=== PATIENT | male | born 1970 | race African-American/Black ===

== ENCOUNTER 2017-04-11 11:52 | Inpatient (IN) | payer MEDICAID ==
[~2017-04-11] VITALS: Ht 175.3 cm; Wt 108.9 kg
[~2017-04-11 11:52] MED LIST: AMLO10TA4 PO; ASPI-1159 PO; ATOR10TA PO; BACL-141 PO; CLON0.2T PO; HYDR25TA PO; POTA10CA42 PO
[2017-04-11] MEDS ORDERED: SODIUM CHLORIDE 0.9% 1,000 ML IV ONE (12:24)
[2017-04-11] MEDS ORDERED: LEVETIRACETAM 1,000 MG in SODIUM CHLORIDE 0.9% 100 ML IV ONE (12:30)
[2017-04-11 13:03] LABS: BASOPHILS % 0.7 % (0.0-2.0); EOSINOPHILS % 5.6 % (0.0-5.0); HEMATOCRIT. 41.9 % (42.0-52.0); HEMOGLOBIN. 14.3 g/dL (14.0-18.0); LYMPHOCYTES % 14.8 % (20.0-50.0); MEAN CORPUSCULAR HEMOGLOBIN 29.4 pg (28.0-32.0); MEAN CORPUSCULAR VOLUME 86.3 fL (80.0-94.0); MEAN PLATELET VOLUME 9.5 fl (7.4-10.4); MONOCYTES % 6.2 % (2.0-8.0); NEUTROPHILS % 72.7 % (40.0-76.0); PLATELET 187 x1000/uL (130-400); RED BLOOD CELL COUNT 4.86 mill/uL (4.7-6.1); RED CELL DISTRIBUTION WIDTH 15.5 % (11.6-14.6)
[2017-04-11 13:23] LABS: CARBON DIOXIDE 25 mEq/L (21-32); CHLORIDE 105 mEq/L (98-107); ETHANOL BLOOD < 10 mg/dL
[2017-04-11 14:41] LABS: CLARITY URINE CLEAR (CLEAR); COLOR URINE YELLOW (YELLOW); GLUCOSE URINE 1+ (NEGATIVE); KETONES URINE NEGATIVE (NEGATIVE); LEUKOCYTE ESTERASE URINE NEGATIVE (NEGATIVE); NITRITE URINE NEGATIVE (NEGATIVE); OCCULT BLOOD URINE NEGATIVE (NEGATIVE); PROTEIN URINE 1+ (NEGATIVE); SPECIFIC GRAVITY URINE 1.011 (1.005-1.030); UROBILINOGEN URINE 0.2 E.U./dL (0.2-1.0)
[2017-04-11 14:52] LABS: *AMPHETAMINES SCREEN URINE NEGATIVE (NEGATIVE); *BARBITURATES SCREEN URINE NEGATIVE (NEGATIVE); *BENZODIAZEPINES SCREEN URINE PRESUMTIVE POSITIVE (NEGATIVE); *COCAINE SCREEN URINE NEGATIVE (NEGATIVE); CANNABINOID URINE SCREEN PRESUMTIVE POSITIVE (NEGATIVE); METHADONE URINE SCREEN NEGATIVE (NEGATIVE); OPIATES URINE SCREEN NEGATIVE (NEGATIVE); PHENCYCLIDINE URINE SCREEN NEGATIVE (NEGATIVE)
[2017-04-11 20:52] VITALS: BP 140/93
[2017-04-11 20:55] VITALS: BP 140/93
[2017-04-11] MEDS ORDERED: LOSA50TA3 PO (21:15)
[2017-04-11] MEDS ORDERED: METF500T4 PO (21:15)
[2017-04-11] MEDS ORDERED: ATOR20TA PO (21:15)
[2017-04-11] MEDS ORDERED: KEPP500 PO (21:15)
[2017-04-11] MEDS ORDERED: LORAZEPAM 2MG/ML CPJ IV PRN (23:45)
[2017-04-11] MEDS ORDERED: CLONIDINE 0.1MG TABLET PO PRN (23:45)
[2017-04-11] MEDS ORDERED: ACETAMINOPHEN 325MG TABLET PO PRN (23:45)
[2017-04-11] MEDS ORDERED: ONDANSETRON HCL 4MG/2ML VIAL IV PRN (23:45)
[2017-04-11] MEDS: SODIUM CHLORIDE 0.9% 1,000 ML IV SCH (23:53)
[2017-04-12] VITALS: BP 142/88
[2017-04-12 03:58] VITALS: BP 119/81
[2017-04-12 07:41] LABS: BASOPHILS % 0.7 % (0.0-2.0); MEAN CORPUSCULAR VOLUME 85.2 fL (80.0-94.0); MEAN PLATELET VOLUME 9.7 fl (7.4-10.4); NEUTROPHILS % 59.3 % (40.0-76.0); PLATELET 189 x1000/uL (130-400); RED BLOOD CELL COUNT 4.82 mill/uL (4.7-6.1); RED CELL DISTRIBUTION WIDTH 15.4 % (11.6-14.6)
[2017-04-12 08:00] VITALS: BP 127/94
[2017-04-12 08:11] LABS: CARBON DIOXIDE 28 mEq/L (21-32); CHLORIDE 108 mEq/L (98-107)
[2017-04-12] MEDS: METFORMIN HCL 500MG TABLET PO SCH ×2 (09:35→16:25)
[2017-04-12] MEDS: ASPIRIN 81MG EC TABLET PO SCH (09:35)
[2017-04-12] MEDS: LOSARTAN POTASSIUM 50 MG TABLET PO SCH ×2 (09:36→21:02)
[2017-04-12] MEDS: AMLODIPINE 10MG TABLET PO SCH (09:36)
[2017-04-12] MEDS: LEVETIRACETAM 500MG TABLET PO SCH ×2 (09:36→16:25)
[2017-04-12] MEDS ORDERED: DEXTROSE 50% WATER 50ML SYRINGE IV PRN (11:45)
[2017-04-12 12:00] VITALS: BP 126/78
[2017-04-12] MEDS: INSULIN LISPRO 100 UNITS/ML SUBCUT SCH ×3 (12:15→21:00)
[2017-04-12] MEDS: BLOOD SUGAR DIAGNOSTIC STRIP TEST SCH ×3 (12:39→21:10)
[2017-04-12 16:00] VITALS: BP 114/74
[2017-04-12] MEDS: SODIUM CHLORIDE 0.9% 1,000 ML IV SCH (16:25)
[2017-04-12 20:00] VITALS: BP 115/81
[2017-04-12] MEDS ORDERED: ATORVASTATIN CALCIUM 20MG TABLET PO SCH (21:00)
[2017-04-13] VITALS: BP 105/72
[2017-04-13] MEDS: SODIUM CHLORIDE 0.9% 1,000 ML IV SCH (02:13)
[2017-04-13] MEDS: INSULIN LISPRO 100 UNITS/ML SUBCUT SCH ×3 (07:02→17:15)
[2017-04-13] MEDS: BLOOD SUGAR DIAGNOSTIC STRIP TEST SCH ×3 (07:02→16:55)
[2017-04-13 07:30] LABS: BASOPHILS % 0.7 % (0.0-2.0); EOSINOPHILS % 5.5 % (0.0-5.0); HEMATOCRIT. 42.4 % (42.0-52.0); LYMPHOCYTES % 27.4 % (20.0-50.0); MEAN CORPUSCULAR VOLUME 84.7 fL (80.0-94.0); MEAN PLATELET VOLUME 9.4 fl (7.4-10.4); MONOCYTES % 7.2 % (2.0-8.0); NEUTROPHILS % 59.2 % (40.0-76.0); PLATELET 185 x1000/uL (130-400); RED BLOOD CELL COUNT 5.01 mill/uL (4.7-6.1)
[2017-04-13 07:35] LABS: CARBON DIOXIDE 26 mEq/L (21-32); CHLORIDE 107 mEq/L (98-107)
[2017-04-13] MEDS: LEVETIRACETAM 500MG TABLET PO SCH ×2 (08:44→17:07)
[2017-04-13] MEDS: METFORMIN HCL 500MG TABLET PO SCH ×2 (08:44→17:07)
[2017-04-13] MEDS: ASPIRIN 81MG EC TABLET PO SCH (08:44)
[2017-04-13] MEDS: AMLODIPINE 10MG TABLET PO SCH (08:45)
[2017-04-13] MEDS: LOSARTAN POTASSIUM 50 MG TABLET PO SCH (08:45)
[2017-04-13 15:17] VITALS: BP 117/79
== END 2017-04-13 17:55 | disposition home or self-care (01) | DRG 469 ==
LOC: ER 11:59 → EDBEDREQ 18:03 → ENRESERV 18:14 → 5WST 21:40
PROVIDERS: ADMIT Internal Medicine; ATTEND Internal Medicine
DX: N17.9 Acute kidney failure, unspecified (principal); I69.354 Hemiplegia and hemiparesis following cerebral infarction affecting left non-dominant side; I10 Essential (primary) hypertension; G40.901 Epilepsy, unspecified, not intractable, with status epilepticus; E11.9 Type 2 diabetes mellitus without complications; E78.00 Pure hypercholesterolemia, unspecified; N28.9 Disorder of kidney and ureter, unspecified; R26.9 Unspecified abnormalities of gait and mobility; F12.90 Cannabis use, unspecified, uncomplicated; F17.210 Nicotine dependence, cigarettes, uncomplicated; Z91.19 Patient's noncompliance with other medical treatment and regimen; Z79.899 Other long term (current) drug therapy
CPT/HCPCS: 36415; 70450; 70551; 80048; 80053; 80305; 80307; 81001; 82962; 85025; 96365; 99291; G0482; J1815; J1953; J7030; J7050

== ENCOUNTER 2019-02-26 06:03 | Emergency (ER) | payer SELFPAY ==
[~2019-02-26] VITALS: Ht 175.3 cm; Wt 115.4 kg
[~2019-02-26 06:03] MED LIST changes: -ASPI-1159 PO; +ASPI-1393 PO; -ATOR10TA PO; -BACL-141 PO; -CLON0.2T PO; -HYDR25TA PO; +LEVE750T4 PO; -POTA10CA42 PO
[2019-02-26 08:15] LABS: CLARITY URINE CLOUDY (CLEAR); COLOR URINE YELLOW (YELLOW); KETONES URINE NEGATIVE (NEGATIVE); LEUKOCYTE ESTERASE URINE 1+ (NEGATIVE); NITRITE URINE POSITIVE (NEGATIVE); OCCULT BLOOD URINE NEGATIVE (NEGATIVE); PH URINE 5.5 (4.5-8.0); PROTEIN URINE 1+ (NEGATIVE); SPECIFIC GRAVITY URINE 1.013 (1.005-1.030); UROBILINOGEN URINE 0.2 E.U./dL (0.2-1.0)
[2019-02-26 10:04] VITALS: BP 133/91
== END 2019-02-26 10:05 | disposition home or self-care (01) ==
LOC: ER 07:28
DX: R33.9 Retention of urine, unspecified (principal); N39.0 Urinary tract infection, site not specified; N40.0 Benign prostatic hyperplasia without lower urinary tract symptoms; I12.9 Hypertensive chronic kidney disease with stage 1 through stage 4 chronic kidney disease, or unspecified chronic kidney disease; E11.22 Type 2 diabetes mellitus with diabetic chronic kidney disease; N18.9 Chronic kidney disease, unspecified; R56.9 Unspecified convulsions; F17.210 Nicotine dependence, cigarettes, uncomplicated; Z79.82 Long term (current) use of aspirin; Z79.899 Other long term (current) drug therapy
CPT/HCPCS: 81003; 87077; 87186; 99283

== ENCOUNTER 2021-12-14 11:01 | Emergency (ER) | payer MEDICAID, OTHER ==
[~2021-12-14] VITALS: Ht 175.3 cm; Wt 89.0 kg
[~2021-12-14 11:01] MED LIST changes: -ASPI-1393 PO; +ASPI-1497 PO
[2021-12-14] MEDS ORDERED: LIDOCAINE 5% PATCH TOP SCH (11:23)
[2021-12-14] MEDS ORDERED: LIDO700A15 TP (11:32)
[2021-12-14] MEDS ORDERED: CYCL5TAB MT (11:32)
[2021-12-14 12:02] VITALS: BP 137/86
[2021-12-15] MEDS ORDERED: DIAZ2TAB MT (14:42)
== END 2021-12-14 12:22 | disposition home or self-care (01) ==
LOC: ER 11:23
DX: M62.830 Muscle spasm of back (principal); Z86.73 Personal history of transient ischemic attack (TIA), and cerebral infarction without residual deficits; R53.1 Weakness; E11.9 Type 2 diabetes mellitus without complications; I10 Essential (primary) hypertension; F12.10 Cannabis abuse, uncomplicated
CPT/HCPCS: 99283

== ENCOUNTER 2021-12-15 12:19 | Emergency (ER) | payer OTHER ==
[~2021-12-15] VITALS: Ht 180.3 cm; Wt 91.0 kg
[~2021-12-15 12:19] MED LIST changes: +CYCL5TAB MT; +LIDO700A15 TP
[2021-12-15 12:21] VITALS: BP 144/98
[2021-12-15] MEDS ORDERED: KETOROLAC 30MG/ML VIAL IM ONE (13:15)
[2021-12-15] MEDS ORDERED: DIAZEPAM 5 MG TABLET PO ONE (13:45)
[2021-12-15] MEDS ORDERED: DIAZ2TAB MT (14:42)
== END 2021-12-15 14:49 | disposition home or self-care (01) ==
LOC: ER 12:19
DX: S13.9XXA Sprain of joints and ligaments of unspecified parts of neck, initial encounter (principal); E11.9 Type 2 diabetes mellitus without complications; I10 Essential (primary) hypertension; G40.909 Epilepsy, unspecified, not intractable, without status epilepticus; F12.10 Cannabis abuse, uncomplicated; Z86.73 Personal history of transient ischemic attack (TIA), and cerebral infarction without residual deficits; Z79.82 Long term (current) use of aspirin; X50.0XXA Overexertion from strenuous movement or load, initial encounter; Y93.89 Activity, other specified; Y92.89 Other specified places as the place of occurrence of the external cause
CPT/HCPCS: 72040; 73030; 93005; 96372; 99284; J1885

== ENCOUNTER 2021-12-23 12:16 | Inpatient (IN) | payer OTHER ==
[~2021-12-23] VITALS: Ht 175.3 cm; Wt 87.5 kg
[~2021-12-23 12:16] MED LIST changes: -CYCL5TAB MT; +DIAZ2TAB MT
[2021-12-23] MEDS ORDERED: KETOROLAC 60MG/2ML VIAL IM ONE (13:15)
[2021-12-23] MEDS ORDERED: HYDROCODONE/ACETAMINOPHEN 5/325MG TABLET PO ONE (13:15)
[2021-12-23 16:24] LABS: BASOPHILS % 0.6 % (0.0-2.0); EOSINOPHILS % 4.3 % (0.0-5.0); HEMATOCRIT. 44.2 % (42.0-52.0); HEMOGLOBIN. 14.9 g/dL (14.0-18.0); LYMPHOCYTES % 25.2 % (20.0-50.0); MEAN CORPUSCULAR HEMOGLOBIN 29.7 pg (28.0-32.0); MEAN CORPUSCULAR VOLUME 88.3 fL (80.0-94.0); MONOCYTES % 6.3 % (2.0-8.0); NEUTROPHILS % 63.6 % (40.0-76.0); RED BLOOD CELL COUNT 5.01 mill/uL (4.7-6.1); RED CELL DISTRIBUTION WIDTH 14.8 % (11.6-14.6)
[2021-12-23 16:29] LABS: CHLORIDE 113 mEq/L (98-107)
[2021-12-23 16:32] LABS: PROTHROMBIN TIME 11.1 sec (9.6-11.0)
[2021-12-23] MEDS ORDERED: KETOROLAC 60MG/2ML VIAL IM NR (16:50)
[2021-12-23] MEDS ORDERED: HYDROCODONE/ACETAMINOPHEN 5/325MG TABLET PO NR (16:50)
[2021-12-23 17:11] LABS: PLATELET ESTIMATE NORMAL
[2021-12-23 17:12] LABS: MEAN PLATELET VOLUME 10.1 fl (7.4-10.4); PLATELET 171 x1000/uL (130-400)
[2021-12-23 22:00] VITALS: BP 133/86
[2021-12-23 22:30] VITALS: BP 153/104
[2021-12-23] MEDS ORDERED: MORPHINE SULFATE 2 MG/ML CPJ (NOT FOR IM USE) IV PRN (23:15)
[2021-12-23] MEDS ORDERED: CLONIDINE 0.1MG TABLET PO PRN (23:15)
[2021-12-23] MEDS ORDERED: ONDANSETRON HCL 4MG/2ML INJ IV PRN (23:15)
[2021-12-23] MEDS ORDERED: IPRATROPIUM/ALBUTEROL 0.5-3(2.5)MG/3ML NEB HHN PRN (23:15)
[2021-12-23] MEDS ORDERED: MAGNESIUM/ALUMINUM HYDROXIDE/SIMETHICONE 30ML UDC PO PRN (23:15)
[2021-12-23] MEDS ORDERED: DOCUSATE SODIUM 100MG CAPSULE PO PRN (23:15)
[2021-12-23] MEDS ORDERED: ACETAMINOPHEN 325MG TABLET PO PRN ×2 (23:15)
[2021-12-23] MEDS ORDERED: PANTOPRAZOLE 40MG DR TABLET PO NR (23:45)
[2021-12-23] MEDS: HYDROCODONE/ACETAMINOPHEN 5/325MG TABLET PO PRN (23:54)
[2021-12-23] MEDS: DEXAMETHASONE 4MG/ML 1ML VIAL IV SCH (23:54)
[2021-12-23] MEDS: SODIUM CHLORIDE 0.9% 1,000 ML IV SCH (23:55)
[2021-12-24] VITALS: BP 153/104
[2021-12-24 04:00] VITALS: BP 121/72
[2021-12-24] MEDS: HYDROCODONE/ACETAMINOPHEN 5/325MG TABLET PO PRN ×2 (06:06→16:10)
[2021-12-24] MEDS: DEXAMETHASONE 4MG/ML 1ML VIAL IV SCH ×3 (06:07→17:19)
[2021-12-24 06:58] LABS: BASOPHILS % 0.5 % (0.0-2.0); EOSINOPHILS % 0.4 % (0.0-5.0); HEMOGLOBIN. 14.6 g/dL (14.0-18.0); LYMPHOCYTES % 9.4 % (20.0-50.0); MEAN CORPUSCULAR HEMOGLOBIN 29.6 pg (28.0-32.0); MEAN CORPUSCULAR VOLUME 87.3 fL (80.0-94.0); MEAN PLATELET VOLUME 9.7 fl (7.4-10.4); MONOCYTES % 1.6 % (2.0-8.0); NEUTROPHILS % 88.1 % (40.0-76.0); PLATELET 203 x1000/uL (130-400); RED BLOOD CELL COUNT 4.93 mill/uL (4.7-6.1); RED CELL DISTRIBUTION WIDTH 14.9 % (11.6-14.6)
[2021-12-24] MEDS ORDERED: CHOL200010 (07:32)
[2021-12-24] MEDS ORDERED: AMLO10TA4 MT (07:32)
[2021-12-24] MEDS ORDERED: HYDR-4134 MT (07:32)
[2021-12-24 08:00] VITALS: BP 136/86
[2021-12-24 08:52] LABS: CLARITY URINE CLEAR (CLEAR); COLOR URINE YELLOW (YELLOW); KETONES URINE NEGATIVE (NEGATIVE); LEUKOCYTE ESTERASE URINE TRACE (NEGATIVE); NITRITE URINE NEGATIVE (NEGATIVE); OCCULT BLOOD URINE NEGATIVE (NEGATIVE); PROTEIN URINE 1+ (NEGATIVE); SPECIFIC GRAVITY URINE 1.009 (1.005-1.030); UROBILINOGEN URINE 0.2 E.U./dL (0.2-1.0)
[2021-12-24 09:17] LABS: *AMPHETAMINES SCREEN URINE NEGATIVE (NEGATIVE); *BARBITURATES SCREEN URINE NEGATIVE (NEGATIVE); *BENZODIAZEPINES SCREEN URINE NEGATIVE (NEGATIVE); *COCAINE SCREEN URINE NEGATIVE (NEGATIVE); CANNABINOID URINE SCREEN PRESUMTIVE POSITIVE (NEGATIVE); METHADONE URINE SCREEN NEGATIVE (NEGATIVE); OPIATES URINE SCREEN NEGATIVE (NEGATIVE); PHENCYCLIDINE URINE SCREEN NEGATIVE (NEGATIVE)
[2021-12-24] MEDS: AMLODIPINE 10MG TABLET PO SCH (09:57)
[2021-12-24 11:41] LABS: CHLORIDE 109 mEq/L (98-107)
[2021-12-24 12:00] VITALS: BP 126/90
[2021-12-24 12:00] LABS: HDL CHOLESTEROL 41 mg/dL (40-59); LDL CHOLESTEROL 110 mg/dL (5-100)
[2021-12-24] MEDS: SODIUM CHLORIDE 0.9% 1,000 ML IV SCH (12:07)
[2021-12-24 16:00] VITALS: BP 139/91
[2021-12-24] MEDS: HYDRALAZINE HCL 25MG TABLET PO SCH (17:19)
[2021-12-24 20:00] VITALS: BP 127/60
[2021-12-24] MEDS: LEVETIRACETAM 500MG TABLET PO SCH (20:57)
[2021-12-25] VITALS: BP 130/82
[2021-12-25] MEDS: DEXAMETHASONE 4MG/ML 1ML VIAL IV SCH ×3 (00:09→12:39)
[2021-12-25 04:00] VITALS: BP 121/67
[2021-12-25] MEDS: SODIUM CHLORIDE 0.9% 1,000 ML IV SCH (06:36)
[2021-12-25] MEDS: LEVETIRACETAM 500MG TABLET PO SCH (08:16)
[2021-12-25] MEDS: AMLODIPINE 10MG TABLET PO SCH (08:17)
[2021-12-25] MEDS: HYDRALAZINE HCL 25MG TABLET PO SCH (08:17)
[2021-12-25] MEDS: HYDROCODONE/ACETAMINOPHEN 5/325MG TABLET PO PRN (08:18)
[2021-12-25] MEDS ORDERED: DEXA4TAB MT (11:09)
[2021-12-25] MEDS ORDERED: PANT40TA51 MT (11:09)
[2021-12-25] MEDS ORDERED: ACET-3163 MT (11:10)
[2021-12-25] MEDS ORDERED: HYDR-4001 MT (11:10)
[2021-12-25 11:37] VITALS: BP 118/66
== END 2021-12-25 13:10 | disposition home or self-care (01) | DRG 347 ==
LOC: ER 12:16 → 6EST 20:06 → EDBEDREQ 20:41 → EDBEDREQSVC 20:41 → EDBEDREQTM 20:41 → EDBEDREQ 20:43 → ENRESERV 21:15
PROVIDERS: ADMIT Internal Medicine; ATTEND Internal Medicine
DX: M48.02 Spinal stenosis, cervical region (principal); I69.354 Hemiplegia and hemiparesis following cerebral infarction affecting left non-dominant side; M50.223 Other cervical disc displacement at C6-C7 level; I10 Essential (primary) hypertension; M47.812 Spondylosis without myelopathy or radiculopathy, cervical region; E11.9 Type 2 diabetes mellitus without complications; F40.240 Claustrophobia; Z79.82 Long term (current) use of aspirin; Z79.899 Other long term (current) drug therapy
CPT/HCPCS: 36415; 80053; 80061; 80305; 81003; 84443; 85025; 93970; 99285; J1100; J1885; J7030; L0172

== ENCOUNTER 2025-07-05 09:03 | Emergency (ER) | payer MEDICAID, OTHER ==
[~2025-07-05] VITALS: Ht 172.7 cm; Wt 95.0 kg
[~2025-07-05 09:03] MED LIST changes: +ACET-3163 MT; +AMLO-905 MT; -AMLO10TA4 PO; +CHOL200010; +DEXA4TAB MT; +HYDR-4001 MT; +HYDR25TA78 MT; +LIDO-53 TP; -LIDO700A15 TP; +PANT40TA51 MT
[2025-07-05 09:11] VITALS: O2SAT 100
[2025-07-05] MEDS ORDERED: ACET-2708 MT (11:29)
[2025-07-05 11:48] VITALS: BP 144/89; PULSE 65; RESP 16; TEMP 36.8; O2SAT 100
== END 2025-07-05 11:49 | disposition home or self-care (01) ==
LOC: ER 09:19
DX: M62.830 Muscle spasm of back (principal); M54.50 Low back pain, unspecified; E11.9 Type 2 diabetes mellitus without complications; G40.909 Epilepsy, unspecified, not intractable, without status epilepticus; I10 Essential (primary) hypertension; Z79.82 Long term (current) use of aspirin; Z79.899 Other long term (current) drug therapy
CPT/HCPCS: 99283; 72100; A6449